=== PATIENT | female | born 1995 | race Caucasian/White ===

== ENCOUNTER 2017-08-11 13:19 | Emergency (ER) | payer OTHER ==
[~2017-08-11] VITALS: Ht 157.5 cm; Wt 62.1 kg
[2017-08-11 13:30] VITALS: BP 125/71
--- NOTE | 2017-08-11 13:43 | ED EENT ---
History of Present Illness General Chief Complaint: Facial Problems Stated Complaint: LYMPHNODES SWELLING Nursing Triage Note: Patient advises she has been ill for several days and then today noticed significant swelling below her left and right lower jaw. The patient was seen at [facility] and was sent to the ER for further evaluation. Source: patient Exam Limitations: no limitations History of Present Illness Date Seen by Provider: Aug 11, 2017 Time Seen by Provider: 13:41 Initial Comments Sent to ER from [facility] walk-in clinic with reports of left submandibular gland swelling. This is been noticed first yesterday. No fevers. Minor pain. She's been ill with rhinorrhea and cough for the past few days. Urgent care was concerned about abscess, so referred the patient to ER for further workup.. Timing/Duration: abrupt Severity: moderate Location: facial Allergies and Home Medications Allergies Coded Allergies: No Known Drug Allergies (Unverified , 08/11/17) Review of Systems Constitutional: see HPI, No chills Eyes: No Symptoms Reported Ears: No Symptoms Reported Nose: no symptoms reported Mouth: no symptoms reported Throat: see HPI, pain Respiratory: no symptoms reported Cardiovascular: no symptoms reported Musculoskeletal: no symptoms reported Skin: no symptoms reported Neurological: No Symptoms Reported Hematologic/Lymphatic: No Symptoms Reported Past Ammxmpo-Vxzhsd-Vcyhaj Hx Patient Social History Alcohol Use: Denies Use Recreational Drug Use: No Smoking Status: Never a Smoker Recent Foreign Travel: No Contact w/Someone Who Travel: No Recent Infectious Disease Expo: No Recent Hopitalizations: No Physical Abuse: No Sexual Abuse: No Seasonal Allergies Seasonal Allergies: No Surgeries History of Surgeries: No Respiratory History of Respiratory Disorde: No Cardiovascular History of Cardiac Disorders: No Neurological History of Neurological Disord: No Genitourinary History of Genitourinary Disor: No Gastrointestinal History of Gastrointestinal Di: No Musculoskeletal History of Musculoskeletal Dis: No Endocrine History of Endocrine Disorders: No HEENT History of HEENT Disorders: No Cancer History of Cancer: No Psychosocial History of Psychiatric Problem: No Suicide Risk Score: 0 Integumentary History of Skin or Integumenta: No Blood Transfusions History of Blood Disorders: No Physical Exam Vital Signs Vital Sign - Last 12Hours 08/11/17 13:30 Temp 99.1 Pulse 86 Resp 14 B/P (MAP) 125/71 (89) Pulse Ox 98 O2 Delivery Room Air General Appearance: WD/WN, no apparent distress Eyes: bilateral eye normal inspection, bilateral eye PERRL, bilateral eye EOMI Ears: bilateral ear auricle normal, bilateral ear canal normal, bilateral ear TM normal Nose: normal inspection, active bleeding Mouth/Throat: other (she does report pain beneath her tongue on the left side) Neck: full range of motion, lymphadenopathy (L) (significant left submandibular lymphadenopathy firm and tender. No uvular deviation to suggest peritonsillar abscess.) Respiratory: normal breath sounds, no respiratory distress, no accessory muscle use Gastrointestinal: normal bowel sounds Neurologic/Psychiatric: alert, normal mood/affect Skin: normal color, warm/dry Progress/Results/Core Measures Results/Orders Lab Results Laboratory Tests Test 08/11/17 13:34 Range/Units White Blood Count 6.9 4.3-11.0 10^3/uL Red Blood Count 4.82 4.35-5.85 10^6/uL Hemoglobin 13.8 11.5-16.0 G/DL Hematocrit 41 35-52 % Mean Corpuscular Volume 85 80-99 FL Mean Corpuscular Hemoglobin 29 25-34 PG Mean Corpuscular Hemoglobin Concent 34 32-36 G/DL Red Cell Distribution Width 12.9 10.0-14.5 % Platelet Count 315 130-400 10^3/uL Mean Platelet Volume 10.0 7.4-10.4 FL Neutrophils (%) (Auto) 76 H 42-75 % Lymphocytes (%) (Auto) 12 12-44 % Monocytes (%) (Auto) 8 0-12 % Eosinophils (%) (Auto) 3 0-10 % Basophils (%) (Auto) 1 0-10 % Neutrophils # (Auto) 5.2 1.8-7.8 X 10^3 Lymphocytes # (Auto) 0.9 L 1.0-4.0 X 10^3 Monocytes # (Auto) 0.6 0.0-1.0 X 10^3 Eosinophils # (Auto) 0.2 0.0-0.3 10^3/uL Basophils # (Auto) 0.0 0.0-0.1 10^3/uL Sodium Level 139 135-145 MMOL/L Potassium Level 4.2 3.6-5.0 MMOL/L Chloride Level 106 98-107 MMOL/L Carbon Dioxide Level 22 21-32 MMOL/L Anion Gap 11 5-14 MMOL/L Blood Urea Nitrogen 11 7-18 MG/DL Creatinine 0.79 0.60-1.30 MG/DL Estimat Glomerular Filtration Rate > 60 BUN/Creatinine Ratio 14 Glucose Level 92 70-105 MG/DL Calcium Level 9.2 8.5-10.1 MG/DL Total Bilirubin 0.5 0.1-1.0 MG/DL Aspartate Amino Transf (AST/SGOT) 20 5-34 U/L Alanine Aminotransferase (ALT/SGPT) 13 0-55 U/L Alkaline Phosphatase 45 40-136 U/L C-Reactive Protein High Sensitivity 2.00 H 0.00-0.50 MG/DL Total Protein 7.8 6.4-8.2 GM/DL Albumin 4.0 3.2-4.5 GM/DL Serum Test, Qualitative NEGATIVE NEGATIVE Micro Results Microbiology 08/11/17 Influenza Types A,B Antigen (BEULAH) - Final, Complete My Orders Orders - GABY PAZ CONSULTING TECHNICAL DIRECTOR Cbc With Automated Diff (08/11/17 13:32) Comprehensive Metabolic Panel (08/11/17 13:32) Hs C Reactive Protein (08/11/17 13:32) Hcg,Qualitative Serum (08/11/17 13:32) Saline Lock/Iv-Start (08/11/17 13:32) Ct Neck (Soft Tissue) W (08/11/17 13:32) Iohexol Injection (Omnipaque 350 Mg/Ml 1 (08/11/17 13:45) Influenza A And B Antigens (08/11/17 13:39) Medications Given in ED Current Medications Medications Dose Ordered Sig/Domingo Route Start Time Stop Time Status Last Admin Dose Admin Iohexol 75 ml ONCE ONCE IV 08/11/17 13:45 08/11/17 13:46 DC 08/11/17 14:22 75 ML Vital Signs/I&O Vital Sign - Last 12Hours 08/11/17 13:30 Temp 99.1 Pulse 86 Resp 14 B/P (MAP) 125/71 (89) Pulse Ox 98 O2 Delivery Room Air Blood Pressure Mean: 89 Departure Impression Impression: Primary Impression: Submandibular lymphadenitis Disposition: 01 HOME, SELF-CARE Condition: Stable Departure-Patient Inst. Decision time for Depature: 14:44 Referrals: [facility] (PCP/Family) Primary Care Physician Patient Instructions: NO INSTRUCTIONS GIVEN Add. Discharge Instructions: 1. Return to ER for any concerns such as fevers, increased pain or increased swelling 2. Follow-up with [facility] next week. They may refer you to ear nose and throat Dr. Tenorio 3. Antibiotics as directed 4. Heart candy such as lemon drops will help with this. All discharge instructions reviewed with patient and/or family. Voiced understanding. Scripts Amoxicillin/Potassium Clav (Augmentin 875-125 Tablet) 1 Each Tablet 1 EACH PO BID, #14 TAB Prov: GABY PAZ APRN 08/11/17 GABY PAZ APRN Aug 11, 2017 13:43
[2017-08-11] MEDS ORDERED: IOHEXOL 350 MG/ML 100 ML (OMNIPAQUE 350) VIAL IV ONE (13:45)
[2017-08-11 13:49] LABS: BASOPHILS % (AUTO) 1 % (0-10); EOSINOPHILS # (AUTO) 0.2 10^3/uL (0.0-0.3); EOSINOPHILS % (AUTO) 3 % (0-10); HEMATOCRIT 41 % (35-52); HEMOGLOBIN 13.8 G/DL (11.5-16.0); LYMPHOCYTES # (AUTO) 0.9 X 10^3 (1.0-4.0); LYMPHOCYTES % (AUTO) 12 % (12-44); MEAN CORPUSCULAR HEMOGLOBIN 29 PG (25-34); MEAN CORPUSCULAR HGB CONC 34 G/DL (32-36); MEAN CORPUSCULAR VOLUME 85 FL (80-99); MONOCYTES # (AUTO) 0.6 X 10^3 (0.0-1.0); MONOCYTES % (AUTO) 8 % (0-12); NEUTROPHILS # (AUTO) 5.2 X 10^3 (1.8-7.8); NEUTROPHILS % (AUTO) 76 % (42-75); PLATELET COUNT 315 10^3/uL (130-400); RED BLOOD COUNT 4.82 10^6/uL (4.35-5.85); RED CELL DISTRIBUTION WIDTH 12.9 % (10.0-14.5); WHITE BLOOD COUNT 6.9 10^3/uL (4.3-11.0)
[2017-08-11 14:08] LABS: ALANINE AMINOTRANSFERASE 13 U/L (0-55); ALKALINE PHOSPHATASE 45 U/L (40-136); BILIRUBIN,TOTAL 0.5 MG/DL (0.1-1.0); BUN/CREATININE RATIO 14; CALCIUM 9.2 MG/DL (8.5-10.1); CARBON DIOXIDE 22 MMOL/L (21-32); CHLORIDE 106 MMOL/L (98-107); CREATININE SERUM 0.79 MG/DL (0.60-1.30); GFR ESTIMATED > 60; GLUCOSE 92 MG/DL (70-105); POTASSIUM 4.2 MMOL/L (3.6-5.0); SODIUM 139 MMOL/L (135-145); TOTAL PROTEIN 7.8 GM/DL (6.4-8.2)
--- NOTE | 2017-08-11 14:38 | Diagnostic Imaging Report ---
PROCEDURE: CT neck soft tissue with contrast. TECHNIQUE: Multiple contiguous axial images were obtained through the neck after the administration of contrast. INDICATION: Swollen lymph nodes in the neck last night, coughing with productive cough. COMPARISON: None FINDINGS: Fluid is seen throughout the soft tissues of the anterior neck, with marked enlargement of the submandibular glands bilaterally. There are prominent cervical lymph nodes bilaterally. No loculated rim-enhancing or drainable fluid collection is seen. No edema is seen extending into the upper mediastinum. The lung apices appear normal. No acute osseous abnormality is seen. The cervical spine is unremarkable. IMPRESSION: 1. No loculated or drainable fluid collections are seen in the soft tissues of the neck. 2. Marked enlargement of the bilateral submandibular glands, with marked surrounding soft tissue edema/fluid extending inferiorly along the anterior neck. This may represent sialadenitis. 3. Prominent cervical lymph nodes bilaterally, likely reactive. Dictated by: Dictated on workstation # [id number]
[2017-08-11] MEDS ORDERED: AMOX-358 PO (14:46)
[2017-08-11] MEDS ORDERED: AMOXICILLIN 500 MG (POLYMOX) CAP PO STA (14:46)
--- OUTSIDE RECORDS SUMMARY | 2017-08-12 10:14 | XMS REPORT | Continuity of Care Document ---
Author Author [employer] Organization [facility] Address Unknown Phone Unavailable Care Team Providers Care Magazine Grinder Loader Name Role Phone [employer] Unavailable Unavailable Problems Problem Status Onset Date Classification Date Reported Comments Source Persons encountering health services in other specified circumstances 12/15/2016 [place] [facility] [place] for general adult medical examination without abnormal findings 12/15/2016 Diagnosis 12/16/[place] [facility] [place]ention-deficit hyperactivity disorder, predominantly inattentive type 12/15/2016 Diagnosis 12/16/[place] [facility] [place]xiety disorder, unspecified 12/15/2016 Diagnosis 2016 [facility] [place] depressive disorder, single episode, unspecified 12/15/2016 Diagnosis 12/16/2016 [facility] [place] Other seasonal allergic rhinitis 12/15/2016 Diagnosis 09/2016 [facility] [place]ention deficit hyperactivity disorder (disorder) Active Problem 12/16/2016 [facility] [place]al allergic rhinitis (disorder) Active Problem 09/2016 [facility] [place] Medications Medication Details Route Status Patient Instructions Ordering Provider Order Date Source Apri 0.15 mg-0.03 mg oral tablet PO Active THEE 02/04/2014 [facility] Apri PO Documented 11/26/2013 [facility] Xyzal 5 mg oral tablet PO Documented 11/26/2013 [facility] Concerta 54 mg/24 hr oral tablet, extended release PO Documented 11/26/2013 [facility] Zoloft 100 mg oral tablet PO Documented 11/26/2013 [facility] {21 (Desogestrel 0.15 MG / Ethinyl Estradiol 0.03 MG Oral Tablet) / 7 (Inert Ingredients 1 MG Oral Tablet) } Pack [Apri 28 Day] 1 Tab, daily, PO, 90 Tab, Maintenance, 02/04/14 13:32:11, 4 Number of Refills, 4, Route to Pharmacy Electronically, [id number], [id number], TAB Active [facility] [place] 24 HR Amphetamine 12.5 MG Extended Release Oral Tablet [Adzenys] 1 Tab, QAM, PO, 0 Number of Refills, 0 Active [facility] [place] [place] levocetirizine 5 mg oral tablet 1 Tab, QPM, PO, 30 Tab, Maintenance, 12/15/16 16:58:29 CDT, 2 Number of Refills , 2, [id number], [id number] [place] [facility] [place]pri 1 Tab, Q24H, PO, Maintenance, 11/26/13 15:26:19, 0 Number of Refills Active [facility] [place] [place] levocetirizine dihydrochloride 5 MG Oral Tablet [Xyzal] 1 Tab, QPM, PO, Maintenance, 11/26/13 15:25:50, 0 Number of Refills Active [facility] [place] [place] HR Methylphenidate Hydrochloride 54 MG Extended Release Tablet [Concerta] 1 Tab, QAM, PO, 0 Number of Refills, 0 Active [facility] [place] [place] Sertraline 100 MG Oral Tablet [Zoloft] 1 Tab, daily, PO, 90 Tab, 0 Number of Refills, TAB Active [facility] [place] Allergies, Adverse Reactions, Alerts Substance Category Reaction Severity Reaction type Status Date Reported Comments Source NKA Datatype(AL1.2)-Drug Allergy ACTIVE 02/04/2014 [facility] Immunizations Results Order Name Results Value Reference Range Date Interpretation Comments Source Office/Clinic Notes Office/Clinic Notes [facility] at [address] [address] [phone] PATIENT: RHODA MEDINA MR #: [id number] : 1995 DATE SEEN: 12/15/2016 Chief Complaint Patient would like to be seen to establish care _ History of Present Illness Rhoda presents to clinic today to establish care and for her annual wellness exam. She is a former patient of the [facility]. She has a BSA in Accounting from [employer] and currently works for [employer]. She has a history of ADHD as well as anxiety/depression. She sees Dr. Kwan for her ADHD medication management. She does suffer from seasonal allergies. Review of Systems Denies fever or chills. Denies unintentional weight changes. Denies fatigue. Denies visual or hearing changes. Denies ear pain, rhinorrhea, sneezing, or congestion. Denies chest pain or palpitations. Denies shortness of breath or cough. Denies syncope. Denies abdominal pain, nausea, vomiting, diarrhea, or constipation. Denies melena or hematochezia. Denies reflux symptoms. Denies dysuria or frequency. Denies incontinence. Denies leg swelling or pain. Denies numbness, tingling, or weakness. Denies joint or muscle pains. Denies heat or cold intolerance. Denies polyuria or polydipsia. Denies headache or dizziness. Denies mood disturbances Allergies NKA Current Medications Adzenys XR-ODT 12.5 mg oral tablet, disintegrating, extended release ( amphetamine), 12.5 mg, Oral, Every Morning Apri (desogestrel-ethinyl estradiol), 1 Tab, Oral, Every 24 hours Apri 0.15 mg-0.03 mg oral tablet (desogestrel-ethinyl estradiol), 1 Tab, Oral, Daily Not taking Concerta 54 mg/24 hr oral tablet, extended release (methylphenidate), 54 mg, Oral, Every Morning Not taking Xyzal 5 mg oral tablet (levocetirizine), 5 mg, Oral, Every evening Zoloft 100 mg oral tablet (sertraline), 100 mg, Oral, Daily Problems and Past Medical History Active ADD (attention deficit disorder) Seasonal allergies Family History DM (diabetes mellitus) type I controlled with renal manifestation Father Diabetes.. Father Grandparent Procedure History Reflux surgery at 2002. Social History Alcohol Use: Denies Caffeine Use: Current Caffeine Type: Coffee Caffeine Frequency: Daily Caffeine Amount: 1 cup Tobacco/Nicotine Usage: Denies Recreational Drug Use: Denies Education Attained: College Physical Examination TEMP BP Pulse RR MAP O2 Sat 110/64 72 16 79.33 97 Blood Pressure Location: Left arm Oxygen Therapy: Room air Weight Height BMI BSA 63.3 kg (139.55 lbs) 158 cm 25.4 kg/m2 1.6668 m2 General: Alert, oriented and in no acute distress. Ears: Clear tympanic membranes bilaterally. Clear canals. Eyes: PERRLA. EOMI. No icterus or injection. Mouth: Moist mucous membranes. No posterior pharyngeal erythema. Neck: Soft and supple. No lymphadenopathy. Heart: Regular rate and rhythm without murmur. No S3 or S4. Lungs: Clear to auscultation bilaterally in all lung chaparro. Good respiratory effort. Abdomen: No guarding or rebound. Nontender and nondistended. Positive normoactive bowel sounds. No mass or hepatosplenomegaly. No bruits heard. Extremities: No clubbing, cyanosis, or edema. Pulses 2+ and equal. Skin: Warm and dry with good turgor. Neurologic: Cranial nerves 2-12 intact. Psychiatric: Mood and affect appropriate. Impression/PLan 1. Adult ADHD (F90.0). _ 2. Anxiety (F41.9). _ 3. Depression (F32.9). _ 4. Encounter for wellness examination (Z00.00). _ 5. Encounter to establish care (Z76.89). _ 6. Seasonal allergies (J30.2). _ Will obtain records from [facility] as well as [facility] for record review. Return to clinic as needed. Education provided and patient verbalizes understanding of plan. 12/15/2016 [Electronically Signed on 12.21.2016 08:05 PM] Joann Mustafa APRN [facility] Ambulatory Depart Summary Ambulatory Depart Summary [address] [address] PERSON INFORMATION Name RHODA MEDINA Age 18 Years 1995 12:00 AM Sex Female Language Upper Sorbian PCP Bob Saini DO Marital Status Single Time Zone [id number] Visit Reason WELLNESS EXAM Specialty Enc Type [facility] SPO-Specialist Phys Office Referred by [facility] Discharge Process Discharge Tracking Id Checkout Checkin Acuity Dispo Type Arrival 02/04/2014 1:05 PM Reg Status LOS Address: [address] [place] [address] [place] [address] PHYS DOC NOTES PROVIDER INFORMATION VITALS INFORMATION Height: 5ft 1.0in Weight: 129.85 lbs (BMI: 24.5) Temp: 98.6 F Heart Rate: 110 Respiratory: 16 O2 Sat: BP: 104/76 Smoking Status: Denies - 02/04/14 LOCATION INFORMATION Arrival Nurse Unit Room Bed 02/04/2014 1:09 PM ORDERS INFORMATION Start Time Order Type Status Stop Time Provider 02/04/2014 1:31 PM Preventive, New patient, (age 18-20 years) -23543 Evaluation and Management Completed 02/04/2014 1:31 PM My Rosario MD MEDICAL INFORMATION Allergy Info: NKA HOME MEDICATIONS Apri 1 Tab, Oral, Every 24 hours Apri 0.15 mg-0.03 mg oral tablet 1 Tab, Oral, Daily, 4 Refills, Routed to: [facility][id number] Concerta 54 mg/24 hr oral tablet, extended release 54 mg, Oral, Every Morning Xyzal 5 mg oral tablet 5 mg, Oral, Every evening Zoloft 100 mg oral tablet 100 mg, Oral, Daily DISCHARGE INFORMATION Discharge Disposition: Discharge Location: PATIENT EDUCATION INFORMATION Instructions: Follow up: DIAGNOSIS Contraception management; Well woman exam with routine gynecological exam 02/04/2014 [facility] Office/Clinic Notes Office/Clinic Notes Patient: RHODA MEDINA Age: 18 years Sex: Female : 1995 Associated Diagnoses: None Author: My Rosario MD Chief Complaint Reason For Visit: Patient states she is here for wellness exam. Patient here for annual exam. No complaints. History of Present Illness The patient presents for an annual exam. Associated symptoms consist of none. The patient's last menstrual period occurred on 02/01/2014. The last menstrual period was described as usual menstrual flow. The patient's diet is described as regular. Exercise: occasional. The patient's general health status is described as good. The method of contraception consists of oral contraceptive. Review of Systems Constitutional: No fever, No chills, No sweats, No fatigue. Eye: Negative. Ear/Nose/Mouth/Throat: Negative. Respiratory: No shortness of breath, No cough, No wheezing. Cardiovascular: No chest pain, No palpitations, No tachycardia. Gastrointestinal: No nausea, No vomiting, No diarrhea, No constipation, No abdominal pain. Genitourinary: recent UTIs without symptoms at this time, No dysuria, No hematuria, No change in urine stream. Hematology/Lymphatics: Negative. Endocrine: Negative. Musculoskeletal: Negative. Integumentary: No rash, No skin lesion. Neurologic: Alert and oriented X4. Psychiatric: No anxiety, No depression, Not suicidal. Breasts: No breast tenderness, palpable masses, nipple discharge or bleeding Menses: No change. Regular menstrual cycles without complaint ofSignificant cramping or heavy bleeding Sexual history: Patient denies dyspareunia. Negative for concerns or need of STD screening All systems reviewed and are unchanged except as noted above or in HPI Health Status Allergies: Allergic Reactions (Selected) NKA Current medications: (Selected) Prescriptions Prescribed Apri 0.15 mg-0.03 mg oral tablet: 1 Tab, PO, daily, 90 Tab Documented Medications Documented Apri: 1 Tab, PO, Q24H Concerta 54 mg/24 hr oral tablet, extended release: 1 Tab, PO, QAM Xyzal 5 mg oral tablet: 1 Tab, PO, QPM Zoloft 100 mg oral tablet: 1 Tab, PO, daily, 90 Tab, Apri (desogestrel-ethinyl estradiol), 1 Tab, Every 24 hours Concerta 54 mg/24 hr oral tablet, extended release (methylphenidate), 54 mg, Every Morning Xyzal 5 mg oral tablet (levocetirizine), 5 mg, Every evening Zoloft 100 mg oral tablet (sertraline), 100 mg, Daily Problem list: No problem items selected or recorded. Histories Past Medical History: No active or resolved past medical history items have been selected or recorded. Family History: DM (diabetes mellitus) type I controlled with renal manifestation Father Diabetes.. Father Grandparent Procedure History: Reflux surgery in 2002 at 8 Years. Social History Alcohol Use Alcohol Use: Denies Caffeine Use Caffeine Use: Current Caffeine Type: Coffee Caffeine Frequency: Daily Caffeine Amount: 1 cup Current Tobacco Usage: Denies Education: College Recreational Drug Use Recreational Drug Use: Denies . Gynecologic history Menstrual cycle: regular normal menstrual cycle.. status: Para Information: : 0 Para Term: 0 Para : 0 Abortions: 0 Livin. Pap test: previous Pap smear reviewed. Pap_today. Pap_completed today Mammogram_Due Physical Examination Cut Off Worker present: During the entire physical exam. VS/Measurements Vital Signs 02/04/2014 13:11 Temperature Oral 37 DegC Peripheral Pulse Rate 110 bpm HI Respiratory Rate 16 br/min Systolic Blood Pressure 104 mmHg Diastolic Blood Pressure 76 mmHg Mean Arterial Pressure. 85.33 mmHg , Measurements from flowsheet : Measurements 02/04/2014 13:11 Height 154.9 cm Weight 58.9 kg BSA 1.592 m2 Body Mass Index 24.5 kg/m2 BMI Percentile 75.45 General: Alert and oriented, No acute distress. HENT: Normal hearing. Neck: Supple, Non-tender, No lymphadenopathy, No thyromegaly. Respiratory: Lungs are clear to auscultation, Respirations are non-labored, Breath sounds are equal. Cardiovascular: Normal rate, Regular rhythm, No murmur. Breast: No mass, No tenderness, No discharge, symmetric breasts, no suspicious skin changes. Gastrointestinal: Soft, Non-tender, Non-distended, No organomegaly. Gynecology: No urethral discharge, No lesions. Mons pubis: No lesion, No tender. Vulva: No edema, No erythema, No lesion, No tenderness. Vagina: moist, rugous with physiologic discharge.. Urethra: Within normal limits. Genitourinary: No costovertebral angle tenderness, No lesions. Musculoskeletal: Normal range of motion. Integumentary: Warm, [place]. Neurologic: Alert, Oriented. Psychiatric: Cooperative, Appropriate mood & affect. Procedure Pap smear: no pap today - under 21 y/o. Health Maintenance t. Review / Management Results review Impression and Plan Diagnosis Well woman exam (ICD9 V70.0). Contraception management (ICD9 V25.9). Course: Progressing as expected. Plan: control continue current method. Orders Orders (Selected) Outpatient Orders Completed Preventive, New patient, (age 18-20 years) -76592: Prescriptions Prescribed Apri 0.15 mg-0.03 mg oral tablet: 1 Tab, PO, daily, 90 Tab. Patient Instructions: Contraception education, Dietary education. Counseled: Patient, Regarding diagnosis, Regarding treatment, Regarding medications, Diet, Activity, Verbalized understanding, return in one year or earlier if problems, self breast exams monthly. 02/04/2014 [Electronically Signed on 02.04.2014 01:40 PM] My Rosario MD [facility] WH-Chickenpox WH-Chickenpox Yes 02/04/2014 [facility] Ambulatory Depart Summary Ambulatory Depart Summary [facility] AT [address] [id number] PERSON INFORMATION Name RHODA MEDINA Age 18 Years 1995 12:00 AM Sex Female Language Upper Sorbian PCP Bob Saini DO Marital Status Single Time Zone [facility] [id number] Visit Id Visit Reason BUMPS ON LEGS Specialty Enc Type [facility] PHYSOFF-Physician Office Referred by [facility] Discharge Process Discharge Tracking Id Checkout Checkin Acuity Dispo Type Arrival 11/26/2013 3:17 PM Reg Status LOS Address: [address] [place] [id number] PHYS DOC NOTES PROVIDER INFORMATION VITALS INFORMATION Height: 5ft 1.0in Weight: 130.29 lbs (BMI: 24.6) Temp: 99.0 F Heart Rate: 80 Respiratory: 12 O2 Sat: 99 BP: 98/68 LOCATION INFORMATION Arrival Nurse Unit Room Bed 11/26/2013 3:21 PM ORDERS INFORMATION Start Time Order Type Status Stop Time Provider 11/26/2013 3:54 PM Office Visit Level 3 New - [id number] Evaluation and Management Completed 11/26/2013 3:54 PM Bob Saini DO MEDICAL INFORMATION Allergy Info: NKA HOME MEDICATIONS Apri 1 Tab, Oral, Every 24 hours Concerta 54 mg/24 hr oral tablet, extended release 54 mg, Oral, Every Morning Xyzal 5 mg oral tablet 5 mg, Oral, Every evening Zoloft 100 mg oral tablet 100 mg, Oral, Daily DISCHARGE INFORMATION Discharge Disposition: Discharge Location: PATIENT EDUCATION INFORMATION Instructions: Insect Bites and Stings Follow up: With: Address: When: Bob Saini [address] [place] [phone] Business (1) Comments: PLEASE USE OVER THE COUNTER HYDROCORTISON OINTMENT, BENADRYL SPRAY AND BENADRYL TABLETS DIAGNOSIS Bug bites 11/26/2013 [facility] Depression Screening Grid 2 Depression Screening Grid 2 Not at all CD:[id number] Not at all CD:[id number] Not at all CD:[id number] Not at all CD:[id number] Not at all CD:[id number] Not at all CD:[id number] Not at all CD:[id number] Not at all CD:[id number] Not at all 11/26/2013 [facility] Depression Screening Grid 1 Depression Screening Grid 1 No CD:[id number] No 11/26/2013 [facility] Amb Nurs Intake w Hx Event Amb Nurs Intake w Hx Event 11/26/2013 [facility] SMEG-Healthcare Goals 1 SMEG-Healthcare Goals 1 No CD:[id number] No CD:[id number] No CD:[id number] No CD:[id number] No CD:[id number] No CD:[id number] No CD:[id number] No CD:[id number] No CD:[id number] No 11/26/2013 [facility] Level of Functioning Grid-Clinic Level of Functioning Grid-Clinic 11/26/2013 [facility] Office/Clinic Notes Office/Clinic Notes [facility] AT [address] [address] PATIENT: RHODA MEDINA MR #: [id number] : 1995 DATE SEEN: 11/26/2013 Chief Complaint Patient is coming in today for "bumps" located on both of her shins. History of Present Illness Rhoda is a 18-year-old female in today to establish care with a new primary care physician. She is currently taking control on a daily basis, Concerta, Xyzal, and Zoloft. They seem to be controlling her other conditions quite well. However, the reason that she made the appointment and came in today , was for some bumps on her legs. She states that she really just noticed them last night, and this morning they became very itchy. They are only on her shins. She does not really have a reason that they could be there. She states that she did go look at some houses, and she got a pedicure. 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 No other concerns or complaints today. Review of Systems General - Seasonal allergies. Denies weight change, fatigue, weakness, fevers, chills. HEENT - Denies headaches. Denies changes in hearing and vision. Denies rhinorrhea, stuffiness, sneezing, epistaxis. Denies sore throat, bleeding gums, hoarseness. Heart - Denies chest pain, pressure, palpitations. Lungs - Denies shortness of breath, wheeze, cough, hemoptysis. GI - Denies nausea or vomiting, abdominal pain, changes in bowel movements. - Denies changes in urinary habits. Musculoskeletal - Denies muscle weakness, joint stiffness, changes in range of motion. Neurologic - Denies numbness, tingling, tremors, weakness, seizures. Hematologic - Denies anemia, easy bruising, petechiae. Endocrine - Denies heat/cold intolerance, polyuria, polydipsia, thyroid problems. Skin - Bumps on her legs. Psychiatric - ADD (attention-deficit disorder). Denies changes in mood, anxiety , depression. Allergies NKA Current Medications Apri (desogestrel-ethinyl estradiol), 1 Tab, Every 24 hours Concerta 54 mg/24 hr oral tablet, extended release (methylphenidate), 54 mg, Every Morning Xyzal 5 mg oral tablet (levocetirizine), 5 mg, Every evening Zoloft 100 mg oral tablet (sertraline), 100 mg, Daily Problems and Past Medical History Active No Chronic Problems Family History DM (diabetes mellitus) type I controlled with renal manifestation Father Procedure History Reflux surgery at 02/2003. Social History Alcohol Use: Denies Caffeine Use: Current Caffeine Type: Coffee Caffeine Frequency: Daily Caffeine Amount: 1 cup Current Tobacco Usage: Denies Education: College Recreational Drug Use: Denies Living Situation: Other: Home with parents Physical Examination TEMP BP Pulse RR MAP O2 Sat 37.2 98/68 80 12 78 99 Blood Pressure Location: Right arm Oxygen Therapy: Room air Weight Height BMI BSA 59.1 kg (130.29 lbs) 154.9 cm 24.6 kg/m2 1.5947 m2 General - Well-hydrated, well-developed, well-nourished, in no acute distress HEENT - Head is normocephalic and atraumatic. Pupils equal, round, reactive to light. Extraocular muscles intact. Mucous membranes moist. No pharyngeal erythema. Tympanic membranes normal. Heart - Regular rate and rhythm without murmurs, rubs, or gallops. Lungs - Clear to auscultation bilaterally without wheeze, rhonchi, or rale. Unlabored respirations. Abdomen - Soft, nontender, nondistended. No rebound or guarding noted. Bowel sounds present in 4 quadrants. Extremities - No clubbing, cyanosis, or edema. Pulses 2+ and equal. Neurologic - Alert and oriented x3. No motor or sensory deficits noted. Skin - Warm, dry, and intact. She has multiple small papules anterior shins, most likely representing bug bites. Impression and Plan 1. Bug bites (919.4). We are going to go ahead and treat conservatively at this point. Recommended [id number] hydrocortisone ointment, as well as Benadryl spray and tabs. We did discuss signs of infection, and warning signs of when to return to the clinic. Otherwise, will have her sign a records release and have her back as needed. TR: [id number] LYDIA#: [id number] 11/26/2013 [Electronically Signed on 11.27.2013 09:40 AM] Bob Saini, DO [facility] Vital Signs Encounters Location Location Details Encounter Type Encounter Number Reason For Visit Attending Provider ADM Date DC Date Status Source [facility] [address] [facility] [id number] BUMPS ON LEGS Bob Saini 11/26/2013 Active [facility] [id number] WELLNESS EXAM MY ROSARIO 02/04/2014 Active [facility] [address] [place] [phone] Establish primary care Paris Iyer 11/28/2016 Active [facility] [address] [place] [address] [phone] establish primary care and general check up Joann Mustafa 11/28/2016 Active [facility] [address] [place] [address] [phone] Establish primary care Joann Mustafa 12/15/2016 Active [facility] [id number] Joann Mustafa 12/15/2016 [facility] [address] [place] [address] [phone] establish primary care and general check up Joann Mustafa Active [facility] Procedures Plan of Care Social History Assessment and Plan Family History Advance Directives Functional Status
--- OUTSIDE RECORDS SUMMARY | 2017-08-12 10:14 | XMS REPORT | Continuity of Care Document ---
Author Author [facility] Organization [facility] Address Unknown Phone Unavailable Allergies There is no data. Medications There is no data. Problems There is no data. Procedures There is no data. Results Test Result Range Complete blood count (CBC) with automated white blood cell (WBC) differential - 08/11/17 13:34 Blood leukocytes automated count (number/volume) 6.9 10*3/uL 4.3-11.0 Blood erythrocytes automated count (number/volume) 4.82 10*6/uL 4.35-5.85 Venous blood hemoglobin measurement (mass/volume) 13.8 g/dL 11.5-16.0 Blood hematocrit (volume fraction) 41 % 35-52 Automated erythrocyte mean corpuscular volume 85 [foz_us] 80-99 Automated erythrocyte mean corpuscular hemoglobin (mass per erythrocyte) 29 pg 25-34 Automated erythrocyte mean corpuscular hemoglobin concentration measurement ( mass/volume) 34 g/dL 32-36 Automated erythrocyte distribution width ratio 12.9 % 10.0-14.5 Automated blood platelet count (count/volume) 315 10*3/uL 130-400 Automated blood platelet mean volume measurement 10.0 [foz_us] 7.4-10.4 Automated blood neutrophils/100 leukocytes 76 % 42-75 Automated blood lymphocytes/100 leukocytes 12 % 12-44 Blood monocytes/100 leukocytes 8 % 0-12 Automated blood eosinophils/100 leukocytes 3 % 0-10 Automated blood basophils/100 leukocytes 1 % 0-10 Blood neutrophils automated count (number/volume) 5.2 10*3 1.8-7.8 Blood lymphocytes automated count (number/volume) 0.9 10*3 1.0-4.0 Blood monocytes automated count (number/volume) 0.6 10*3 0.0-1.0 Automated eosinophil count 0.2 10*3/uL 0.0-0.3 Automated blood basophil count (count/volume) 0.0 10*3/uL 0.0-0.1 Serum or plasma choriogonadotropin ( test) detection - 08/11/17 13:34 Serum or plasma choriogonadotropin ( test) detection NEGATIVE NEGATIVE Comprehensive metabolic panel - 08/11/17 13:34 Serum or plasma sodium measurement (moles/volume) 139 mmol/L 135-145 Serum or plasma potassium measurement (moles/volume) 4.2 mmol/L 3.6-5.0 Serum or plasma chloride measurement (moles/volume) 106 mmol/L 98-107 Carbon dioxide 22 mmol/L 21-32 Serum or plasma anion gap determination (moles/volume) 11 mmol/L 5-14 Serum or plasma urea nitrogen measurement (mass/volume) 11 mg/dL 7-18 Serum or plasma creatinine measurement (mass/volume) 0.79 mg/dL 0.60-1.30 Serum or plasma urea nitrogen/creatinine mass ratio 14 NRG Serum or plasma creatinine measurement with calculation of estimated glomerular filtration rate > NRG Serum or plasma glucose measurement (mass/volume) 92 mg/dL 70-105 Serum or plasma calcium measurement (mass/volume) 9.2 mg/dL 8.5-10.1 Serum or plasma total bilirubin measurement (mass/volume) 0.5 mg/dL 0.1-1.0 Serum or plasma alkaline phosphatase measurement (enzymatic activity/volume) 45 U/L 40-136 Serum or plasma aspartate aminotransferase measurement (enzymatic activity/ volume) 20 U/L 5-34 Serum or plasma alanine aminotransferase measurement (enzymatic activity/volume ) 13 U/L 0-55 Serum or plasma protein measurement (mass/volume) 7.8 g/dL 6.4-8.2 Serum or plasma albumin measurement (mass/volume) 4.0 g/dL 3.2-4.5 Serum or plasma C reactive protein measurement (mass/volume) - 08/11/17 13:34 Serum or plasma C reactive protein measurement (mass/volume) 2.00 mg /dL 0.00-0.50 Influenza virus A and B antigen detection - 08/11/17 13:41 FLU RESULT NEGATIVE FOR INFLUENZA A AND B ANTIGENS BY IA NRG Encounters ACCT No. Visit Date/Time Discharge Status Pt. Type Provider Facility Loc./Unit Complaint [id number] 02/24/2014 08:20:00 02/24/2014 23:59:59 CLS Outpatient [id number] 08/11/2017 13:51:00 Document Registration
--- OUTSIDE RECORDS SUMMARY | 2017-08-12 10:14 | XMS REPORT | Summary of Care ---
Author Author [facility] Organization [facility] Address Unknown Phone Unavailable Care Team Providers Care Datapower Consultant Name Role Phone None, Stated PCP Unavailable Encounter PFM Date(s): 12/15/16 [facility] [address] [place] [address] [facility] [phone] Discharge Diagnosis: Encounter to establish care Discharge Diagnosis: Encounter for wellness examination Discharge Diagnosis: Adult ADHD Discharge Diagnosis: Anxiety Discharge Diagnosis: Depression Discharge Diagnosis: Seasonal allergies Attending Physician: Joann Mustafa APRN Vital Signs No data available for this section Problem List Condition Effective Dates Status Health Status Informant ADD (attention Active deficit disorder)(Confirmed) Seasonal Active allergies(Confirmed) Allergies, Adverse Reactions, Alerts No Known Allergies Medications Adzenys XR-ODT 12.5 mg oral tablet, disintegrating, extended release 1 Tab, QAM, PO, 0 Number of Refills, 0 Start Date: 12/15/16 Status: Ordered Apri 1 Tab, Q24H, PO, Maintenance, 11/26/13 15:26:19, 0 Number of Refills Start Date: 11/26/13 Status: Ordered Apri 0.15 mg-0.03 mg oral tablet 1 Tab, daily, PO, 90 Tab, Maintenance, 02/04/14 13:32:11, 4 Number of Refills, 4 , Route to Pharmacy Electronically, [facility]/pharmacy #[id number], [id number]- [id number], TAB Start Date: 02/04/14 Status: Ordered Concerta 54 mg/24 hr oral tablet, extended release 1 Tab, QAM, PO, 0 Number of Refills, 0 Start Date: 11/26/13 Status: Ordered levocetirizine 5 mg oral tablet 1 Tab, QPM, PO, 30 Tab, Maintenance, 12/15/16 16:58:29 CDT, 2 Number of Refills , 2, Route to Pharmacy Electronically, [facility]/pharmacy #[id number], [id number] Start Date: 12/15/16 Status: Ordered Xyzal 5 mg oral tablet 1 Tab, QPM, PO, Maintenance, 11/26/13 15:25:50, 0 Number of Refills Start Date: 11/26/13 Status: Ordered Zoloft 100 mg oral tablet 1 Tab, daily, PO, 90 Tab, 0 Number of Refills, TAB Start Date: 11/26/13 Status: Ordered Results No data available for this section Immunizations No data available for this section Procedures No data available for this section Social History No data available for this section Assessment and Plan No data available for this section
== END 2017-08-11 14:55 | disposition home or self-care (01) ==
LOC: EDUNIT# 13:19 → ER 13:22
DX: I88.9 Nonspecific lymphadenitis, unspecified (principal)
CPT/HCPCS: 36415; 70491; 80053; 84703; 85025; 86141; 87804